=== PATIENT | female | born 1940 | race Caucasian/White ===

== ENCOUNTER 2018-02-14 14:08 | Outpatient (REF) | payer SELFPAY ==
[2018-02-14 15:58] LABS: Bilirubin Negative (Negative); Blood Small (Negative); Clarity Cloudy; Glucose Negative (Negative); Ketones Negative (Negative); Leukocyte Esterase Large (Negative); Nitrite Positive (Negative); Urobilinogen 0.2 EU/dL (Up TO 0.2); pH 5.5 (5-8)
[2018-02-14 16:16] LABS: C & S Indicated? C&S Done As Ordered
[2018-02-14 16:25] LABS: Bacteria Many HPF (Negative); Casts Negative LPF (Negative); Crystals Negative HPF (Negative); Epithelial Cells Negative HPF (Negative); Mucus Negative (Negative); Other Cells Negative (Negative); RBC Negative (0-2); WBC >50 HPF (0-5)
== END 2018-02-14 14:28 ==
LOC: NCHCN 14:08
PROVIDERS: PCP Family Medicine; Visit Provider Family Medicine
DX: R82.90 Unspecified abnormal findings in urine (principal); R41.82 Altered mental status, unspecified
CPT/HCPCS: 87077; 81003; 81015; 87086; 87186

== ENCOUNTER 2018-02-24 02:06 | Emergency (ER) | payer MEDICARE, SELFPAY ==
[2018-02-24 02:06] VITALS: BP 96/41; PULSE 88; RESP 16; TEMP 36.2; O2SAT 99
--- NOTE | 2018-02-24 02:19 | W.ED.GENAD ---
Discharge Plan Disposition Patient Disposition: SNF (LEVEL [facility]) [facility] Condition: Good Discharge Details Chief Complaint: HeadInjury Clinical Impression: Facial laceration Reason For Visit: CALVIN Primary Care Provider: Dominique Guaman V ED Provider: Gary Venegas [place] Meds and New Rx's Prescriptions: Continue citalopram [Celexa] 20 MG tablet 20 mg PO DAILY RF: 0 levetiracetam [Keppra] 250 MG tablet 500 mg PO BID Qty: 60 RF: 0 loperamide 2 mg Capsule 4 mg PO DAILY PRNRF: 0 trazodone 50 mg Tablet 25 mg PO DAILY RF: 0 cephalexin [Keflex] 250 mg Capsule 250 mg PO TID RF: 0 melatonin 3 mg Tablet 6 mg PO HS RF: 0 tramadol 50 mg Tablet 50 mg PO BID RF: 0 tramadol 50 mg Tablet 50 mg PO Q6H PRNRF: 0 acetaminophen [Acetaminophen Extra Strength] 500 mg Tablet 1,000 mg PO TID RF: 0 magnesium hydroxide [Milk of Magnesia] 400 mg/5 mL Suspension 30 ml PO DAILY PRNRF: 0 bisacodyl 10 mg Suppository 10 mg CO DAILY PRNRF: 0 aspirin 81 mg Tablet,Chewable 81 mg PO DAILY RF: 0 calcium carbonate 500 mg calcium (1,250 mg) Tablet,Chewable 500 mg PO BID RF: 0 menthol [Biofreeze (menthol)] 4 % Gel 1 applic Topical Q6H PRN PRNRF: 0 metoprolol succinate [Toprol XL] 50 MG tablet extended release 24 hr 25 mg PO DAILY RF: 0 Discharge Instructions Instructions: Facial Laceration (ED) Additional Instructions: Laceration was glued. Watch for sign of infection. Head CT was negative. Referrals: Dominique Guaman MD [Primary Care Provider] - Medical Decision Making Patient here after falling out of bed. Denies loss of consciousness but has evidence of head injury and has prior subarachnoid hemorrhage from trauma. She also has history of CVA. She is nonfocal neurologically. Spine can be cleared clinically. No chest wall tenderness. Lungs clear. Extremities with good range of motion no tenderness. Will need a head CT. Small laceration just lateral to the right eyebrow is irrigated. Bleeding is controlled. Edges held together and skin glue used to close laceration with good results. CT head is negative for bleed or intracranial pathology. No fracture. Patient tetanus status is up-to-date. Patient may be transferred back to ECF. HPI General Mode of arrival: EMS. Date/Time Provider Initiated Documentation: 02/24/18 02:19. Limitations to Documentation: no limitations. Information obtained by: patient and old records reviewed. HPI Narrative: Patient sent over from ECF for evaluation after fall. Patient states that she rolled out of bed and fell onto the floor. She denies loss of consciousness. She has a small laceration above her right eye. She denies headache or face pain. She denies neck pain. She did not want to come here but they needed her to be evaluated. She wants to go back to the ECF as quickly as possible. Related Data Home Medications Medication Instructions Recorded Confirmed levetiracetam [Keppra] 500 mg PO BID #60 tab 04/17/14 02/24/18 citalopram [Celexa] 20 mg PO DAILY tab-cap 05/05/14 02/24/18 acetaminophen [Acetaminophen Extra 1,000 mg PO TID 02/24/18 02/24/18 Strength] aspirin 81 mg PO DAILY 02/24/18 02/24/18 bisacodyl 10 mg CO DAILY PRN 02/24/18 02/24/18 calcium carbonate 500 mg PO BID 02/24/18 02/24/18 cephalexin [Keflex] 250 mg PO TID 02/24/18 02/24/18 loperamide 4 mg PO DAILY PRN 02/24/18 02/24/18 magnesium hydroxide [Milk of 30 ml PO DAILY PRN 02/24/18 02/24/18 Magnesia] melatonin 6 mg PO HS 02/24/18 02/24/18 menthol [Biofreeze (menthol)] 1 applic TOPICAL Q6H PRN PRN 02/24/18 02/24/18 metoprolol succinate [Toprol XL] 25 mg PO DAILY 02/24/18 02/24/18 tramadol 50 mg PO BID 02/24/18 02/24/18 tramadol 50 mg PO Q6H PRN 02/24/18 02/24/18 trazodone 25 mg PO DAILY 02/24/18 02/24/18 Previous Rx's Medication Instructions Recorded levetiracetam [Keppra] 500 mg PO BID #60 tab 04/17/14 Allergies Allergy/AdvReac Type Severity Reaction Status Date / Time Sulfa (Sulfonamide Allergy Unknown Unverified 02/24/18 02:35 Antibiotics) General Stated Complaint: HeadInjury SAADIA: 3 Review of Systems Constitutional Denies chills, Denies fever(s) and Denies headache(s) Eyes Denies change in vision and Denies eye pain ENT Denies facial pain, Denies headache(s), Denies epistaxis and Denies neck pain Cardiovascular Denies chest pain and Denies dyspnea Respiratory Denies dyspnea Gastrointestinal Denies abdominal pain, Denies nausea and Denies vomiting Musculoskeletal Denies back pain, Denies deformity, Denies neck pain and Denies numbness Integumentary/Breasts Reports wounds Neurologic Denies headache(s), Denies focal weakness and Denies numbness [facility], [facility] Medical History CVA (cerebral vascular accident) (Chronic) HTN (hypertension) (Chronic) Seizures (Chronic) SAH (subarachnoid hemorrhage) (Inactive) Social History Smoking/Tobacco Use Status: Former Tobacco Use Surgical History S/P shoulder hemiarthroplasty (Inactive) Exam Const General: no acute distress and frail appearing Orientation: alert, oriented to person and oriented to place [facility] Head: normocephalic, contusion (old yellowing ecchymosis right eye/forehead) and laceration (right lateral eyebrow) Ears: external ears normal General nose exam: external nose normal and no epistaxis Face and sinus: no tenderness Eyes Pupils: PERRL EOM: EOM intact bilaterally Chest Chest: normal palpation of entire chest wall Resp Auscultation: clear to auscultation bilaterally Cardio Rate: regular rate Rhythm: regular rhythm Heart Sounds: S1 normal and S2 normal GI Palpation: soft and nontender Back/Spine/Pelvis Cervical Spine: cervical ROM normal and No cervical spinal tenderness Thoracic/Lumbar Spine: thoraco-lumbar ROM normal, No thoracic spinal tenderness and No lumbar spinal tenderness Skin Trauma: laceration Neuro General: alert, oriented Patient Orientation: Person and Place, moves all extremities, no focal motor deficits and CN's II-XI intact bilaterally Sensory Exam: no sensory deficits noted Extrem General: normal to inspection, full ROM, no edema and other (no tenderness to extremities/no deformities) Course Vital Signs Temperature 97.2 F L 02/24/18 02:06 Pulse 88 02/24/18 02:06 Respiratory Rate 16 02/24/18 02:06 Blood Pressure 96/41 L 02/24/18 02:06 Pulse Oximetry 99 02/24/18 02:06 Temperature 97.2 F L 02/24/18 02:06 Temperature Source Skin 02/24/18 02:06 Pulse 88 02/24/18 02:06 Respiratory Rate 16 02/24/18 02:06 Respiratory Effort Non-Labored 02/24/18 02:13 Blood Pressure 96/41 L 02/24/18 02:06 Pulse Oximetry 99 02/24/18 02:06 Oxygen Delivery Method Room Air 02/24/18 02:06 Oxygen Flow Rate 0 02/24/18 02:06 Pain Level 0 02/24/18 02:06 Procedures Laceration Laceration 1: Site: face Side (If applicable): right Size (cm): 0.5 Description: stellate Depth: simple, single layer Pre-repair: irrigated extensively Skin layer closed with: other (skin glue)
--- NOTE | 2018-02-24 02:31 | ED.GENADUL_ITS ---
Discharge Plan Disposition Patient Disposition: SNF ([facility]) [facility] Condition: Good Discharge Details Chief Complaint: HeadInjury Clinical Impression: Facial laceration Reason For Visit: CALVIN Primary Care Provider: Dominique Guaman V ED Provider: Gary Venegas [place] Meds and New Rx's Prescriptions: Continue citalopram [Celexa] 20 MG tablet 20 mg PO DAILY RF: 0 levetiracetam [Keppra] 250 MG tablet 500 mg PO BID Qty: 60 RF: 0 loperamide 2 mg Capsule 4 mg PO DAILY PRNRF: 0 trazodone 50 mg Tablet 25 mg PO DAILY RF: 0 cephalexin [Keflex] 250 mg Capsule 250 mg PO TID RF: 0 melatonin 3 mg Tablet 6 mg PO HS RF: 0 tramadol 50 mg Tablet 50 mg PO BID RF: 0 tramadol 50 mg Tablet 50 mg PO Q6H PRNRF: 0 acetaminophen [Acetaminophen Extra Strength] 500 mg Tablet 1,000 mg PO TID RF: 0 magnesium hydroxide [Milk of Magnesia] 400 mg/5 mL Suspension 30 ml PO DAILY PRNRF: 0 bisacodyl 10 mg Suppository 10 mg [place] DAILY PRNRF: 0 aspirin 81 mg Tablet,Chewable 81 mg PO DAILY RF: 0 calcium carbonate 500 mg calcium (1,250 mg) Tablet,Chewable 500 mg PO BID RF: 0 menthol [Biofreeze (menthol)] 4 % Gel 1 applic Topical Q6H PRN PRNRF: 0 metoprolol succinate [Toprol XL] 50 MG tablet extended release 24 hr 25 mg PO DAILY RF: 0 Discharge Instructions Instructions: Facial Laceration (ED) Additional Instructions: Laceration was glued. Watch for sign of infection. Head CT was negative. Referrals: Dominique Guaman MD [Primary Care Provider] - Medical Decision Making Patient here after falling out of bed. Denies loss of consciousness but has evidence of head injury and has prior subarachnoid hemorrhage from trauma. She also has history of CVA. She is nonfocal neurologically. Spine can be cleared clinically. No chest wall tenderness. Lungs clear. Extremities with good range of motion no tenderness. Will need a head CT. Small laceration just lateral to the right eyebrow is irrigated. Bleeding is controlled. Edges held together and skin glue used to close laceration with good results. CT head is negative for bleed or intracranial pathology. No fracture. Patient tetanus status is up-to-date. Patient may be transferred back to ECF. HPI General Mode of arrival: EMS . Date/Time Provider Initiated Documentation: 02/24/18 02:19 . Limitations to Documentation: no limitations . Information obtained by: patient and old records reviewed . HPI Narrative: Patient sent over from ECF for evaluation after fall. Patient states that she rolled out of bed and fell onto the floor. She denies loss of consciousness. She has a small laceration above her right eye. She denies headache or face pain. She denies neck pain. She did not want to come here but they needed her to be evaluated. She wants to go back to the ECF as quickly as possible. Related Data Home Medications Medication Instructions Recorded Confirmed levetiracetam [Keppra] 500 mg PO BID #60 tab 04/17/14 02/24/18 citalopram [Celexa] 20 mg PO DAILY tab-cap 05/05/14 02/24/18 acetaminophen [Acetaminophen Extra 1,000 mg PO TID 02/24/18 02/24/18 Strength] aspirin 81 mg PO DAILY 02/24/18 02/24/18 bisacodyl 10 mg NC DAILY PRN 02/24/18 02/24/18 calcium carbonate 500 mg PO BID 02/24/18 02/24/18 cephalexin [Keflex] 250 mg PO TID 02/24/18 02/24/18 loperamide 4 mg PO DAILY PRN 02/24/18 02/24/18 magnesium hydroxide [Milk of 30 ml PO DAILY PRN 02/24/18 02/24/18 Magnesia] melatonin 6 mg PO HS 02/24/18 02/24/18 menthol [Biofreeze (menthol)] 1 applic TOPICAL Q6H PRN PRN 02/24/18 02/24/18 metoprolol succinate [Toprol XL] 25 mg PO DAILY 02/24/18 02/24/18 tramadol 50 mg PO BID 02/24/18 02/24/18 tramadol 50 mg PO Q6H PRN 02/24/18 02/24/18 trazodone 25 mg PO DAILY 02/24/18 02/24/18 Previous Rx's Medication Instructions Recorded levetiracetam [Keppra] 500 mg PO BID #60 tab 04/17/14 Allergies Allergy/AdvReac Type Severity Reaction Status Date / Time Sulfa (Sulfonamide Allergy Unknown Unverified 02/24/18 02:35 Antibiotics) General Stated Complaint: HeadInjury SAADIA: 3 Review of Systems Constitutional Denies chills, Denies fever(s) and Denies headache(s) Eyes Denies change in vision and Denies eye pain ENT Denies facial pain, Denies headache(s), Denies epistaxis and Denies neck pain Cardiovascular Denies chest pain and Denies dyspnea Respiratory Denies dyspnea Gastrointestinal Denies abdominal pain, Denies nausea and Denies vomiting Musculoskeletal Denies back pain, Denies deformity, Denies neck pain and Denies numbness Integumentary/Breasts Reports wounds Neurologic Denies headache(s), Denies focal weakness and Denies numbness [facility] Medical History CVA (cerebral vascular accident) (Chronic) HTN (hypertension) (Chronic) Seizures (Chronic) SAH (subarachnoid hemorrhage) (Inactive) Social History Smoking/Tobacco Use Status: Former Tobacco Use Surgical History S/P shoulder hemiarthroplasty (Inactive) Exam Const General: no acute distress and frail appearing Orientation: alert, oriented to person and oriented to place [facility] Head: normocephalic, contusion (old yellowing ecchymosis right eye/forehead) and laceration (right lateral eyebrow) Ears: external ears normal General nose exam: external nose normal and no epistaxis Face and sinus: no tenderness Eyes Pupils: PERRL EOM: EOM intact bilaterally Chest Chest: normal palpation of entire chest wall Resp Auscultation: clear to auscultation bilaterally Cardio Rate: regular rate Rhythm: regular rhythm Heart Sounds: S1 normal and S2 normal GI Palpation: soft and nontender Back/Spine/Pelvis Cervical Spine: cervical ROM normal and No cervical spinal tenderness Thoracic/Lumbar Spine: thoraco-lumbar ROM normal, No thoracic spinal tenderness and No lumbar spinal tenderness Skin Trauma: laceration Neuro General: alert, oriented Patient Orientation: Person and Place, moves all extremities, no focal motor deficits and CN's II-XI intact bilaterally Sensory Exam: no sensory deficits noted Extrem General: normal to inspection, full ROM, no edema and other (no tenderness to extremities/no deformities) Course Vital Signs Temperature 97.2 F L 02/24/18 02:06 Pulse 88 02/24/18 02:06 Respiratory Rate 16 02/24/18 02:06 Blood Pressure 96/41 L 02/24/18 02:06 Pulse Oximetry 99 02/24/18 02:06 Temperature 97.2 F L 02/24/18 02:06 Temperature Source Skin 02/24/18 02:06 Pulse 88 02/24/18 02:06 Respiratory Rate 16 02/24/18 02:06 Respiratory Effort Non-Labored 02/24/18 02:13 Blood Pressure 96/41 L 02/24/18 02:06 Pulse Oximetry 99 02/24/18 02:06 Oxygen Delivery Method Room Air 02/24/18 02:06 Oxygen Flow Rate 0 02/24/18 02:06 Pain Level 0 02/24/18 02:06 Procedures Laceration Laceration 1: Site: face Side (If applicable): right Size (cm): 0.5 Description: stellate Depth: simple, single layer Pre-repair: irrigated extensively Skin layer closed with: other (skin glue)
--- NOTE | 2018-02-24 02:40 | DI.CT_ITS ---
SYMPTOM/DIAGNOSIS: FALL OUT OF BED CRANIAL CT: 02/[address] was performed. There is scalp hematoma and laceration of the right frontal region. No underlying fracture identified. The orbital structures appear intact as visualized. Temporal bone structures appear intact. No calvarial fracture seen. There is marked generalized cerebral atrophy and there are patchy areas of decreased attenuation in periventricular white matter consistent with microvascular ischemic change. No evidence of acute intracranial hemorrhage, mass effect or midline shift. CONCLUSION: No evidence of acute intracranial injury.
--- NOTE | 2018-02-24 03:15 | DI.VRAD_ITS ---
EXAM: CT Head Without Intravenous Contrast CLINICAL HISTORY: 77 years old, female; Injury or trauma; Fall; Initial encounter; Laceration; Consciousness not specified; Without residual foreign body; Other: Right anglican; Injury date: 02/24/18; Injury details: Fall out of bed, laceration r side anglican TECHNIQUE: Axial computed tomography images of the head/brain without intravenous contrast. All CT scans at this facility use at least one of these dose optimization techniques: automated exposure control; mA and/or kV adjustment per patient size (includes targeted exams where dose is matched to clinical indication); or iterative reconstruction. Coronal and sagittal reformatted images were created and reviewed. COMPARISON: CT HEAD WITHOUT CONTRAST 11/25/2017 1:10 PM FINDINGS: Brain: There is moderate diffuse heterogeneity of the white matter attenuation, consistent with chronic white matter microangiopathic ischemic changes. There is moderate diffuse cerebral atrophy present. There is no evidence of intracranial hemorrhage. There is no evidence of acute intracranial injury or other pathologic process. There is no evidence of an acute ischemic event. Ventricles: The ventricular system demonstrates mild to moderate diffuse compensatory enlargement. Bones/joints: The orbits are normal without evidence of fracture. The bony cranium shows no evidence of injury or other acute pathologic processes. Soft tissues: There is soft tissue swelling and laceration right orbital ridge. Vasculature: Vascular calcifications seen within the carotid and vertebral arteries consistent with chronic atherosclerotic cerebrovascular disease. Sinuses: There is no evidence of fluid levels, mucoperiosteal thickening, or opacification to suggest acute or chronic sinusitis. Mastoid air cells: The mastoid aircells are normal. Orbits: There is no evidence of retro-bulbar hemorrhage. There is no evidence of globe or lens injury. IMPRESSION: No evidence of an acute intracranial abnormality. There is soft tissue swelling and laceration right supraorbital ridge. There is moderate age-related atrophy and chronic white matter ischemic changes, with compensatory ventricular dilation. Dictated and Authenticated by: Jermaine Ocampo MD. Ordering:VIMAL DIOR MD
[2018-02-24 03:29] VITALS: BP 107/89; PULSE 61; RESP 18; TEMP 36.2; O2SAT 98
== END 2018-02-24 03:31 | disposition skilled nursing facility (03) ==
PROVIDERS: Emergency Provider Emergency Medicine; PCP Family Medicine
DX: S01.111A Laceration without foreign body of right eyelid and periocular area, initial encounter (principal); W06.XXXA Fall from bed, initial encounter; I12.9 Hypertensive chronic kidney disease with stage 1 through stage 4 chronic kidney disease, or unspecified chronic kidney disease; N18.9 Chronic kidney disease, unspecified
CPT/HCPCS: 12011; 99284; 70450; 99281

== ENCOUNTER 2018-04-24 12:36 | Outpatient (REF) | payer MEDICARE, SELFPAY ==
[2018-04-24 13:03] LABS: Abs Immature Grans 0.02 k/cumm (0.0-0.09); Absolute Basophil Count 0.01 k/cumm (0.0-0.2); Absolute Eosinophil Count 0.22 k/cumm (0.0-0.7); Absolute Lymphocyte Count 1.07 k/cumm (1.2-3.4); Absolute Monocyte Count 0.66 k/cumm (0.11-0.7); Absolute Neutrophil Count 3.75 k/cumm (1.2-6.7); Basophils % 0.2; Eosinophils % 3.8; HCT 36.9 % (36.0-46.0); HGB 11.7 g/dL (12.0-15.5); Immature Grans % 0.3; Lymphocytes % 18.7; Mean Corp. HGB Concentration 31.7 g/dL (32.0-36.0); Mean Corpuscular Hemoglobin 32.5 pg (27.0-33.0); Mean Corpuscular Volume 102.5 fL (80-95); Monocytes % 11.5; Neutrophils % 65.5; Platelet Count 143 x1000/uL (130-400); RBC Distribution Width 13.3 % (11.7-14.6); White Blood Cell Count 5.73 k/cumm (4.4-10.8)
[2018-04-24 13:05] LABS: Anion Gap 9.5 mmol/L (3-11); BUN 30 mg/dL (7-18); CO2 26.5 mmol/L (21.0-32.0); CREATININE 1.09 mg/dL (0.55-1.02); Chloride 105 mmol/L (98-107); Estimated GFR 48.67 (mL/min/1.73m2); Glucose 109 mg/dL (70-100); Potassium 3.8 mmol/L (3.5-5.1); Sodium 141 mmol/L (136-145)
[2018-04-26 12:54] LABS: Levetiracetam 33.4 mcg/mL
== END 2018-04-24 12:56 ==
LOC: LBN 12:36
PROVIDERS: PCP Family Medicine; Visit Provider Family Medicine
DX: I12.9 Hypertensive chronic kidney disease with stage 1 through stage 4 chronic kidney disease, or unspecified chronic kidney disease (principal); G40.909 Epilepsy, unspecified, not intractable, without status epilepticus; Z51.81 Encounter for therapeutic drug level monitoring; Z79.899 Other long term (current) drug therapy
CPT/HCPCS: 80048; 80177; 85025

== ENCOUNTER 2018-06-30 11:19 | Outpatient (REF) | payer MEDICARE, SELFPAY ==
[2018-06-30 12:09] LABS: TSH (W/Ref FT4) 1.89 uIU/mL (0.358-3.74)
== END 2018-06-30 11:39 ==
LOC: LBN 11:19
PROVIDERS: PCP Family Medicine; Visit Provider Family Medicine
DX: I10 Essential (primary) hypertension (principal); G40.89 Other seizures
CPT/HCPCS: 84443

== ENCOUNTER 2018-07-24 12:16 | Outpatient (REF) | payer MEDICARE, SELFPAY ==
[2018-07-24 13:00] LABS: Abs Immature Grans 0.04 k/cumm (0.0-0.09); Absolute Basophil Count 0.01 k/cumm (0.0-0.2); Absolute Eosinophil Count 0.29 k/cumm (0.0-0.7); Absolute Lymphocyte Count 0.77 k/cumm (1.2-3.4); Absolute Monocyte Count 0.64 k/cumm (0.11-0.7); Absolute Neutrophil Count 4.19 k/cumm (1.2-6.7); Basophils % 0.2; Eosinophils % 4.9; HCT 39.6 % (36.0-46.0); HGB 12.6 g/dL (12.0-15.5); Immature Grans % 0.7; Mean Corp. HGB Concentration 31.8 g/dL (32.0-36.0); Mean Corpuscular Hemoglobin 31.9 pg (27.0-33.0); Mean Corpuscular Volume 100.3 fL (80-95); Mean Platelet Volume 11.8 fL (8.0-11.0); Monocytes % 10.8; Neutrophils % 70.4; Platelet Count 200 x1000/uL (130-400); RBC 3.95 m/cumm (4.00-5.20); RBC Distribution Width 13.4 % (11.7-14.6); White Blood Cell Count 5.94 k/cumm (4.4-10.8)
[2018-07-24 13:33] LABS: Anion Gap 8.8 mmol/L (3-11); BUN 27 mg/dL (7-18); CO2 28.2 mmol/L (21.0-32.0); CREATININE 1.14 mg/dL (0.55-1.02); Calcium 9.8 mg/dL (8.5-10.1); Chloride 104 mmol/L (98-107); Estimated GFR 46.22 (mL/min/1.73m2); Glucose 107 mg/dL (70-100); Potassium 4.6 mmol/L (3.5-5.1); Sodium 141 mmol/L (136-145)
[2018-07-26 14:11] LABS: Levetiracetam 26.8 mcg/mL
== END 2018-07-24 12:36 ==
LOC: LBN 12:16
PROVIDERS: PCP Family Medicine; Visit Provider Family Medicine
DX: I10 Essential (primary) hypertension (principal); G40.89 Other seizures; Z51.81 Encounter for therapeutic drug level monitoring
CPT/HCPCS: 80048; 80177; 85025

== ENCOUNTER 2018-10-25 08:33 | Outpatient (REF) | payer MEDICARE, SELFPAY ==
[2018-10-25 08:51] LABS: Bilirubin Negative (Negative); Blood Moderate (Negative); Clarity Turbid; Glucose Negative (Negative); Ketones Negative (Negative); Leukocyte Esterase Large (Negative); Nitrite Positive (Negative); Urobilinogen 0.2 EU/dL (Up TO 0.2)
[2018-10-25 09:00] LABS: C & S Indicated? Yes
== END 2018-10-25 08:53 ==
LOC: LBN 08:33
PROVIDERS: PCP Family Medicine; Visit Provider Family Medicine
DX: N39.0 Urinary tract infection, site not specified (principal); R35.0 Frequency of micturition
CPT/HCPCS: 87077; 81003; 81015; 87086; 87186

== ENCOUNTER 2019-06-22 12:00 | Outpatient (CLI) | payer MEDICARE, SELFPAY ==
[2019-06-22 13:32] LABS: ALT 13 U/L (14-59); AST 16 U/L (15-37); Albumin 3.4 g/dL (3.4-5.0); Alkaline Phosphatase 56 U/L (46-116); Anion Gap 10.8 mmol/L (3-11); BUN 20 mg/dL (7-18); Bilirubin, Total 0.2 mg/dL (0.2-1.0); CO2 26.2 mmol/L (21.0-32.0); CREATININE 1.12 mg/dL (0.55-1.02); Calcium 8.9 mg/dL (8.5-10.1); Chloride 105 mmol/L (98-107); Estimated GFR 47.05 (mL/min/1.73m2); Glucose 109 mg/dL (74-106); Potassium 4.5 mmol/L (3.5-5.1); Sodium 142 mmol/L (136-145); Total Protein 6.3 g/dL (6.4-8.2)
[2019-06-22 13:46] LABS: Abs Immature Grans 0.03 k/cumm (0.0-0.09); Absolute Basophil Count 0.01 k/cumm (0.0-0.2); Absolute Eosinophil Count 0.34 k/cumm (0.0-0.7); Absolute Lymphocyte Count 0.73 k/cumm (1.2-3.4); Absolute Neutrophil Count 3.84 k/cumm (1.2-6.7); Basophils % 0.2; Eosinophils % 6.1; HCT 37.9 % (36.0-46.0); HGB 11.9 g/dL (12.0-15.5); Immature Grans % 0.5 %; Lymphocytes % 13.2; Mean Corp. HGB Concentration 31.4 g/dL (32.0-36.0); Mean Corpuscular Hemoglobin 32.2 pg (27.0-33.0); Mean Corpuscular Volume 102.7 fL (80-95); Mean Platelet Volume 11.5 fL (8.0-11.0); Monocytes % 10.8; Neutrophils % 69.2; Platelet Count 253 x1000/uL (130-400); RBC 3.69 m/cumm (4.00-5.20); RBC Distribution Width 12.8 % (11.7-14.6); White Blood Cell Count 5.55 k/cumm (4.4-10.8)
[2019-06-24 05:00] LABS: Vitamin D 25 Total 53.1 ng/ml (30-100)
== END 2019-06-22 12:20 ==
PROVIDERS: PCP Family Medicine; Visit Provider Nurse Practitioner Adult Health
DX: D69.6 Thrombocytopenia, unspecified (principal); N18.9 Chronic kidney disease, unspecified; I10 Essential (primary) hypertension; K57.30 Diverticulosis of large intestine without perforation or abscess without bleeding; M81.0 Age-related osteoporosis without current pathological fracture
CPT/HCPCS: 80053; 82306; 84443; 85025

== ENCOUNTER 2019-06-29 10:16 | Outpatient (CLI) | payer MEDICARE, SELFPAY ==
[2019-06-29 11:43] LABS: Abs Immature Grans 0.03 k/cumm (0.0-0.09); Absolute Basophil Count 0.01 k/cumm (0.0-0.2); Absolute Eosinophil Count 0.31 k/cumm (0.0-0.7); Absolute Lymphocyte Count 0.75 k/cumm (1.2-3.4); Absolute Monocyte Count 0.71 k/cumm (0.11-0.7); Absolute Neutrophil Count 3.85 k/cumm (1.2-6.7); Basophils % 0.2; Eosinophils % 5.5; HCT 38.5 % (36.0-46.0); HGB 12.1 g/dL (12.0-15.5); Immature Grans % 0.5 %; Lymphocytes % 13.3; Mean Corp. HGB Concentration 31.4 g/dL (32.0-36.0); Mean Corpuscular Hemoglobin 32.2 pg (27.0-33.0); Mean Corpuscular Volume 102.4 fL (80-95); Mean Platelet Volume 10.6 fL (8.0-11.0); Monocytes % 12.5; Platelet Count 262 x1000/uL (130-400); RBC 3.76 m/cumm (4.00-5.20); RBC Distribution Width 12.8 % (11.7-14.6); White Blood Cell Count 5.66 k/cumm (4.4-10.8)
[2019-06-29 12:10] LABS: ALT 12 U/L (14-59); AST 15 U/L (15-37); Albumin 3.5 g/dL (3.4-5.0); Alkaline Phosphatase 56 U/L (46-116); Anion Gap 7.7 mmol/L (3-11); BUN 24 mg/dL (7-18); Bilirubin, Total 0.3 mg/dL (0.2-1.0); CO2 28.3 mmol/L (21.0-32.0); CREATININE 1.15 mg/dL (0.55-1.02); Chloride 104 mmol/L (98-107); Estimated GFR 45.64 (mL/min/1.73m2); Glucose 114 mg/dL (74-106); Potassium 4.5 mmol/L (3.5-5.1); Sodium 140 mmol/L (136-145); Total Protein 6.4 g/dL (6.4-8.2)
== END 2019-06-29 10:36 ==
PROVIDERS: PCP Family Medicine; Visit Provider Nurse Practitioner Adult Health
DX: G40.89 Other seizures (principal); Z51.81 Encounter for therapeutic drug level monitoring; G44.009 Cluster headache syndrome, unspecified, not intractable; N18.9 Chronic kidney disease, unspecified
CPT/HCPCS: 80053; 80177; 85025

== ENCOUNTER 2019-08-10 10:54 | Outpatient (CLI) | payer MEDICARE, SELFPAY ==
[2019-08-10 11:54] LABS: TSH 2.05 uIU/mL (0.36-3.74)
== END 2019-08-10 11:14 ==
PROVIDERS: PCP Family Medicine; Visit Provider Nurse Practitioner Adult Health
DX: R53.1 Weakness (principal); M81.0 Age-related osteoporosis without current pathological fracture; M62.81 Muscle weakness (generalized)
CPT/HCPCS: 36415; 82306; 84443

== ENCOUNTER 2019-08-17 13:36 | Outpatient (REF) | payer MEDICARE, SELFPAY ==
[2019-08-17 15:55] LABS: TSH 1.66 uIU/mL (0.36-3.74)
== END 2019-08-17 13:56 ==
LOC: LBN 13:36
PROVIDERS: PCP Family Medicine; Visit Provider Nurse Practitioner Adult Health
DX: I10 Essential (primary) hypertension (principal); R53.1 Weakness; M81.0 Age-related osteoporosis without current pathological fracture; D69.6 Thrombocytopenia, unspecified; G40.89 Other seizures
CPT/HCPCS: 82306; 84443

== ENCOUNTER 2019-11-10 14:33 | Outpatient (REF) | payer MEDICARE, SELFPAY ==
[2019-11-11 17:59] LABS: COVID-19 RT-PCR Result Not Detected ((See Note))
== END 2019-11-10 14:53 ==
LOC: LBN 14:33
PROVIDERS: PCP Family Medicine; Visit Provider Nurse Practitioner Adult Health
DX: Z03.818 Encounter for observation for suspected exposure to other biological agents ruled out (principal)
CPT/HCPCS: U0003

== ENCOUNTER 2019-11-15 16:55 | Outpatient (REF) | payer MEDICARE, SELFPAY ==
[2019-11-17 06:53] LABS: COVID-19 RT-PCR Result NEGATIVE (Negative)
== END 2019-11-15 17:15 ==
LOC: LBN 16:55
PROVIDERS: PCP Family Medicine; Visit Provider Nurse Practitioner Adult Health
DX: Z03.818 Encounter for observation for suspected exposure to other biological agents ruled out (principal)
CPT/HCPCS: U0003

== ENCOUNTER 2019-12-28 15:09 | Outpatient (REF) | payer MEDICARE, SELFPAY ==
[2019-12-28 16:31] LABS: ALT 13 U/L (14-59); AST 15 U/L (15-37); Albumin 3.4 g/dL (3.4-5.0); Alkaline Phosphatase 57 U/L (46-116); Anion Gap 9.8 mmol/L (3-11); BUN 26 mg/dL (7-18); Bilirubin, Total 0.2 mg/dL (0.2-1.0); CO2 25.2 mmol/L (21.0-32.0); CREATININE 1.02 mg/dL (0.55-1.02); Chloride 105 mmol/L (98-107); Estimated GFR 52.28 (mL/min/1.73m2); Glucose 121 mg/dL (74-106); Potassium 4.3 mmol/L (3.5-5.1); Sodium 140 mmol/L (136-145); Total Protein 6.4 g/dL (6.4-8.2)
[2019-12-28 16:34] LABS: Abs Immature Grans 0.03 10^3/uL (0.0-0.06); Absolute Basophil Count 0.02 10^3/uL (0.0-0.2); Absolute Eosinophil Count 0.31 10^3/uL (0.0-0.7); Absolute Lymphocyte Count 0.68 10^3/uL (1.2-3.4); Absolute Monocyte Count 0.63 10^3/uL (0.1-0.8); Basophils % 0.3; Eosinophils % 5.4; HCT 38.2 % (36.0-46.0); HGB 11.9 g/dL (11.2-15.7); Immature Grans % 0.5; Lymphocytes % 11.8; MCH 31.4 pg (27.0-33.0); MCHC 31.2 % (32.0-36.0); MCV 100.8 fL (80-95); MPV 11.5 fL (8.0-11.0); Monocytes % 10.9; Neutrophils % 71.1; Nucleated RBC 0 %; Platelet Count 271 10^3/uL (130-400); RBC 3.79 10^6/uL (3.93-5.22); RDW 13.2 % (11.7-14.6); WBC 5.77 10^3/uL (4.4-10.8)
== END 2019-12-28 15:29 ==
LOC: LBN 15:09
PROVIDERS: PCP Family Medicine; Visit Provider Nurse Practitioner Adult Health
DX: N18.9 Chronic kidney disease, unspecified (principal); G40.89 Other seizures; G44.009 Cluster headache syndrome, unspecified, not intractable
CPT/HCPCS: 80053; 85025

== ENCOUNTER 2019-12-30 12:16 | Outpatient (REF) | payer MEDICARE, SELFPAY ==
[2019-12-30 13:32] LABS: Bilirubin Negative (Negative); Blood Trace-lysed (Negative); Clarity Cloudy (Clear); Glucose Negative (Negative); Ketones Negative (Negative); Leukocyte Esterase Moderate (Negative); Nitrite Negative (Negative); Urobilinogen 0.2 EU/dL (Up TO 0.2); pH 5.5 (5-8)
[2019-12-30 14:03] LABS: WBC >50 HPF (0-5)
[2019-12-30 14:04] LABS: Bacteria Moderate HPF (Negative); C & S Indicated? C&S Done As Ordered; Casts Negative LPF (Negative); Crystals Negative HPF (Negative); Epithelial Cells Moderate HPF (Negative); Mucus Negative (Negative); Other Cells Negative (Negative); RBC Negative HPF (0-2)
== END 2019-12-30 12:36 ==
LOC: LBN 12:16
PROVIDERS: PCP Family Medicine; Visit Provider Family Medicine
DX: R82.90 Unspecified abnormal findings in urine (principal)
CPT/HCPCS: 87077; 81003; 81015; 87086; 87186

== ENCOUNTER 2020-06-25 21:42 | Outpatient (REF) | payer MEDICARE, SELFPAY ==
[2020-06-25 18:54] LABS: Bilirubin Negative (Negative); Blood Moderate (Negative); Clarity Cloudy (Clear); Glucose Negative (Negative); Ketones Negative (Negative); Leukocyte Esterase Large (Negative); Nitrite Negative (Negative); Specific Gravity 1.025 (1.005-1.025); Urobilinogen 0.2 EU/dL (Up TO 0.2); pH 7.5 (5-8)
[2020-06-25 19:03] LABS: Bacteria Many HPF (Negative); C & S Indicated? C&S Done As Ordered; Casts Negative LPF (Negative); Crystals Negative HPF (Negative); Epithelial Cells Negative HPF (Negative); Mucus Negative (Negative); Other Cells Negative (Negative); RBC Negative HPF (0-2); WBC >50 HPF (0-5)
== END 2020-06-25 22:02 ==
LOC: LBN 21:42
PROVIDERS: PCP Family Medicine; Visit Provider Family Medicine
DX: R30.0 Dysuria (principal)
CPT/HCPCS: 87077; 81003; 81015; 87086; 87186

== ENCOUNTER 2021-01-24 16:17 | Outpatient (REF) | payer MEDICARE, SELFPAY ==
[2021-01-24 18:57] LABS: Bilirubin Negative (Negative); Blood Moderate (Negative); Clarity Turbid (Clear); Glucose Negative (Negative); Ketones Trace mg/dL (Negative); Leukocyte Esterase Moderate (Negative); Nitrite Positive (Negative); Specific Gravity 1.025 (1.005-1.025); Urobilinogen 0.2 EU/dL (Up TO 0.2); pH 5.5 (5-8)
[2021-01-24 19:06] LABS: Bacteria Many HPF (Negative); C & S Indicated? C&S Done As Ordered; Casts Negative LPF (Negative); Crystals Negative HPF (Negative); Mucus Negative (Negative); WBC >50 HPF (0-5)
== END 2021-01-24 16:18 | disposition home or self-care (01) ==
LOC: LBN 16:17
PROVIDERS: PCP Family Medicine; Visit Provider Family Medicine
DX: S06.6X9D Traumatic subarachnoid hemorrhage with loss of consciousness of unspecified duration, subsequent encounter; R82.998 Other abnormal findings in urine
CPT/HCPCS: 87077; 81003; 81015; 87086; 87186

== ENCOUNTER 2021-03-28 15:34 | Outpatient (REF) | payer MEDICARE, SELFPAY | END 2021-03-28 15:35 | disposition home or self-care (01) | LOC: LBN 15:34 | PROVIDERS: PCP Family Medicine; Visit Provider Nurse Practitioner Family | DX: N18.9 Chronic kidney disease, unspecified (principal) | CPT/HCPCS: 87077; 87086; 87186 ==

== ENCOUNTER 2021-06-11 04:56 | Outpatient (REF) | payer MEDICARE, SELFPAY ==
[2021-06-11 05:59] LABS: C Diff PCR Negative (Negative)
== END 2021-06-11 04:57 | disposition home or self-care (01) ==
LOC: LBN 04:56
PROVIDERS: PCP Family Medicine; Visit Provider Family Medicine
DX: R19.7 Diarrhea, unspecified (principal)
CPT/HCPCS: 87493

== ENCOUNTER 2021-07-31 15:07 | Outpatient (REF) | payer SELFPAY ==
[2021-08-02 07:49] LABS: COVID-19 RT-PCR Result Positive
== END 2021-07-31 15:08 | disposition home or self-care (01) ==
LOC: LBN 15:07
PROVIDERS: PCP Family Medicine; Visit Provider Family Medicine
DX: Z20.822 Contact with and (suspected) exposure to COVID-19 (principal)
CPT/HCPCS: U0003; U0005